=== PATIENT | male | born 1980 ===

== ENCOUNTER 2016-12-09 09:25 | Emergency (ER) | payer SELFPAY ==
[2016-12-09 09:51] VITALS: BMI 25.4
[2016-12-09 09:53] VITALS: BP 109/70; PULSE 70; RESP 18; TEMP 98.7; O2SAT 98
[2016-12-09] MEDS ORDERED: Amoxicillin-Clav 875-125 mg Tab PO STA (10:28)
[2016-12-09] MEDS ORDERED: Amoxicillin-Clav 875-125 mg Tab PO ONE (10:43)
--- NOTE | 2016-12-09 11:44 | C.PDOC ---
History Of Present Illness 36 y/o male c/o sore throat, subjective fevers. Patient reports history of tonsillitis. Denies headache, SOB, chest pain, nausea, vomiting, diarrhea. Time Seen by Provider: 12/09/16 10:24 Chief Complaint (Nursing): ENT Problem History Per: Patient History/Exam Limitations: no limitations Onset/Duration Of Symptoms: Days Current Symptoms Are (Timing): Still Present Recent travel outside of the [place]: No Past Medical History Reviewed: Historical Data, Nursing Documentation, Vital Signs Vital Signs: Last Vital Signs Temp 98.7 F 12/09/16 09:30 Pulse 70 12/09/16 09:30 Resp 18 12/09/16 09:30 BP 109/70 12/09/16 09:30 Pulse Ox 98 12/09/16 11:48 - Medical History PMH: No Chronic Diseases Family History: States: Unknown Family Hx - Social History Hx Alcohol Use: No Hx Substance Use: No - Immunization History Hx Tetanus Toxoid Vaccination: No Hx Influenza Vaccination: No Hx Pneumococcal Vaccination: No Review Of Systems Except As Marked, All Systems Reviewed And Found Negative. Constitutional: Positive for: Fever (subjective). Negative for: Chills ENT: Positive for: Throat Pain Cardiovascular: Negative for: Chest Pain, Palpitations Respiratory: Negative for: Cough Gastrointestinal: Negative for: Nausea, Vomiting Skin: Negative for: Rash Neurological: Negative for: Headache, Dizziness Physical Exam - Physical Exam Appears: Non-toxic, No Acute Distress Skin: Normal Color, Warm, Dry Head: Atraumatic, Normacephalic Eye(s): bilateral: Normal Inspection, PERRL, EOMI Ear(s): Bilateral: Normal Nose: Normal Oral Mucosa: Moist Tongue: No Swelling, Other (green coated tongue) Throat: Erythema (tonsilar), No Exudate, No Drooling Neck: Normal ROM, Supple Chest: Symmetrical Cardiovascular: Rhythm Regular Respiratory: Normal Breath Sounds, No Rales, No Rhonchi, No Wheezing Gastrointestinal/Abdominal: Soft, No Tenderness, No Guarding, No Rebound Back: Normal Inspection Extremity: Normal ROM, Capillary Refill (< 2 sec.) Neurological/Psych: Oriented x3, Normal Speech, Normal Cognition ED Course And Treatment O2 Sat by Pulse Oximetry: 98 (RA) Pulse Ox Interpretation: Normal Progress Note: Treated with amoxicillin, Motrin. Throat culture ordered. Advised to continue taking abx as directed. F/u with PMD/clinic instructed. Disposition Doctor Will See Patient In The: Office Counseled Patient/Family Regarding: Studies Performed, Diagnosis - Disposition Referrals: [facility] [Outside] [facility] [Outside] Lobo Larios MD [Staff Provider] - Disposition: HOME/ ROUTINE Disposition Time: 14:00 Condition: GOOD Additional Instructions: Augmentin 875 mg (P[place]illina) dos veces al marta por 7 ortiz, hasta completos Motrin/Advil/Ibuprofeno 600 mg cada 6 horas donta necessario Pepcid 20 mg en la noche para prevenir irritacion' del estomago debido al ibuprofeno y Augmentin Sigue en la Clinica para re-evaluacion' donta necessario en 3 ortiz- Cultivos mandados. Prescriptions: Amoxicillin/Clavulanate [Augmentin 875 MG-125 MG] 1 tab PO BID #13 tab Instructions: Tonsillitis (ED) Forms: [employer] (Paraguayan) Print Language: YI - Clinical Impression Clinical Impression: Tonsillitis - Scribe Statement The provider has reviewed the documentation as recorded by the Scribe SM All medical record entries made by the Scribe were at my direction and personally dictated by me. I have reviewed the chart and agree that the record accurately reflects my personal performance of the history, physical exam, medical decision making, and the department course for this patient. I have also personally directed, reviewed, and agree with the discharge instructions and disposition.
== END 2016-12-09 10:48 | disposition home or self-care (01) ==
LOC: C.ER 09:25
DX: J03.90 Acute tonsillitis, unspecified (principal)